=== PATIENT | male | born 1970 | race Caucasian/White ===

== ENCOUNTER 2024-12-14 11:05 | Outpatient (REF) | payer OTHER, SELFPAY ==
--- NOTE | ~2024-12-14 | US_ITS ---
EXAMINATION: US KIDNEY BILATERAL HISTORY: COSTOVERTEBRAL TENDERNESS, BILATERAL, FLANK PAIN TECHNIQUE: Real-time grayscale ultrasound imaging of the kidneys was performed and images were reviewed. COMPARISON: There are no prior studies available for comparison. FINDINGS: Right kidney: The right kidney measures 12.6 x 5.2 x 5.9 cm. Renal parenchymal echotexture and thickness are normal. There are no masses. There is no hydronephrosis or renal calculi. Left Kidney: The left kidney measures 13.0 x 5.9 x 6.1 cm. Renal parenchymal echotexture and thickness are normal. There is an upper pole cyst measuring 2.9 x 2.5 x 2.6 cm. There is no hydronephrosis or renal calculi. US/US renal BI IMPRESSION: 2.9 x 2.5 x 2.6 cm left upper pole renal cyst. Otherwise unremarkable renal ultrasound. Electronically signed by: Christophe Merino MD 12/14/2024 12:44 PM EDT
== END 2024-12-14 11:06 | disposition home or self-care (01) ==
LOC: HO.US 11:05
PROVIDERS: PCP Internal Medicine; Visit Provider Physician Assistant
DX: R39.853 Costovertebral (angle) tenderness, bilateral (principal)
CPT/HCPCS: 76775

== ENCOUNTER → 2024-12-14 11:17 | Outpatient (BNV) | payer OTHER, SELFPAY | PROVIDERS: PCP Internal Medicine; Visit Provider Radiology Diagnostic Radiology | DX: N28.1 Cyst of kidney, acquired (principal) | CPT/HCPCS: 76775 ==